=== PATIENT | female | born 1950 | race Caucasian/White ===

== ENCOUNTER → 2018-04-27 | Outpatient (CLI) | payer BC ==
[~2018-04-27] MED LIST: CYCL10TA9 PO; SUMA100T3; TOPI25TA10
--- NOTE | 2018-04-27 11:02 | Diagnostic Imaging Report ---
INDICATION: Cough. FINDINGS: Lungs demonstrate no evidence of focal pulmonary infiltrate or consolidation. There is no effusion. There is no pneumothorax. Heart size and mediastinal contours appear appropriate without evidence of failure. No acute osseous abnormality demonstrated. There are surgical clips in right upper quadrant. IMPRESSION: 1. No radiographic evidence of an acute cardiopulmonary process. Dictated by: Dictated on workstation # [id number]
== END ==
LOC: RAD 10:39
PROVIDERS: ATTEND Family Medicine
DX: J20.8 Acute bronchitis due to other specified organisms (principal)
CPT/HCPCS: 71046

== ENCOUNTER → 2020-09-29 | Outpatient (CLI) | payer BC | LOC: LABNPT 05:48 | PROVIDERS: ATTEND Orthopaedic Surgery | DX: Z01.812 Encounter for preprocedural laboratory examination (principal); Z20.828 Contact with and (suspected) exposure to other viral communicable diseases | CPT/HCPCS: 87635 ==

== ENCOUNTER → 2020-11-17 | Outpatient (CLI) | payer BC | LOC: LABNPT 08:03 | PROVIDERS: ATTEND Physical Medicine & Rehabilitation | DX: Z01.812 Encounter for preprocedural laboratory examination (principal); Z20.828 Contact with and (suspected) exposure to other viral communicable diseases | CPT/HCPCS: 87635 ==

== ENCOUNTER → 2023-03-05 | Outpatient (CLI) | payer MEDICARE, OTHER ==
[~2023-03-05] MED LIST changes: +CYCL10TA25 PO; -CYCL10TA9 PO
== END ==
LOC: WOUNDCARE 08:15
PROVIDERS: ATTEND Family Medicine
DX: T81.31XA Disruption of external operation (surgical) wound, not elsewhere classified, initial encounter (principal); I96 Gangrene, not elsewhere classified; S80.12XA Contusion of left lower leg, initial encounter; D51.9 Vitamin B12 deficiency anemia, unspecified; E55.9 Vitamin D deficiency, unspecified; W17.81XA Fall down embankment (hill), initial encounter
CPT/HCPCS: 11042; A6021; A6212; G0463

== ENCOUNTER → 2023-03-12 | Outpatient (CLI) | payer MEDICARE, OTHER | LOC: WOUNDCARE 08:22 | PROVIDERS: ATTEND Family Medicine | DX: T81.31XA Disruption of external operation (surgical) wound, not elsewhere classified, initial encounter (principal); S80.12XA Contusion of left lower leg, initial encounter; D51.9 Vitamin B12 deficiency anemia, unspecified; E55.9 Vitamin D deficiency, unspecified; I96 Gangrene, not elsewhere classified; W17.81XA Fall down embankment (hill), initial encounter | CPT/HCPCS: 11042; A6212; G0463 ==

== ENCOUNTER → 2023-03-19 | Outpatient (CLI) | payer MEDICARE, OTHER | LOC: WOUNDCARE 08:19 | PROVIDERS: ATTEND Family Medicine | DX: T81.31XA Disruption of external operation (surgical) wound, not elsewhere classified, initial encounter (principal); W17.81XA Fall down embankment (hill), initial encounter; S80.12XA Contusion of left lower leg, initial encounter; D51.9 Vitamin B12 deficiency anemia, unspecified; E55.9 Vitamin D deficiency, unspecified; I96 Gangrene, not elsewhere classified | CPT/HCPCS: 11042; 97607; A9272; G0463 ==

== ENCOUNTER → 2023-03-22 | Outpatient (CLI) | payer MEDICARE, OTHER | LOC: WOUNDCARE 08:27 | PROVIDERS: ATTEND Family Medicine | DX: S81.802A Unspecified open wound, left lower leg, initial encounter (principal); X58.XXXA Exposure to other specified factors, initial encounter | CPT/HCPCS: 29581; 97607; G0463 ==

== ENCOUNTER → 2023-03-26 | Outpatient (CLI) | payer MEDICARE, OTHER | LOC: WOUNDCARE 08:22 | PROVIDERS: ATTEND Family Medicine | DX: T81.31XA Disruption of external operation (surgical) wound, not elsewhere classified, initial encounter (principal); S80.12XA Contusion of left lower leg, initial encounter; E55.9 Vitamin D deficiency, unspecified; D51.9 Vitamin B12 deficiency anemia, unspecified; I96 Gangrene, not elsewhere classified; W17.81XA Fall down embankment (hill), initial encounter | CPT/HCPCS: 29581; G0463 ==

== ENCOUNTER → 2023-04-02 | Outpatient (CLI) | payer MEDICARE, OTHER | LOC: WOUNDCARE 08:30 | PROVIDERS: ATTEND Family Medicine | DX: T81.31XA Disruption of external operation (surgical) wound, not elsewhere classified, initial encounter (principal); W17.81XA Fall down embankment (hill), initial encounter; S80.12XA Contusion of left lower leg, initial encounter; E55.9 Vitamin D deficiency, unspecified; D51.9 Vitamin B12 deficiency anemia, unspecified | CPT/HCPCS: 99212 ==